=== PATIENT | male | born 1965 | race Caucasian/White ===

== ENCOUNTER 2020-12-22 13:59 | Outpatient (CLI) | payer OTHER ==
--- NOTE | 2020-12-22 15:54 | MRI Report ---
PROCEDURE: Cervical Spine W/O INDICATIONS: Cervical spondylosis. TECHNIQUE: Noncontrast sagittal T1 spin echo and T2 fast spin echo, sagittal STIR, foraminal oblique sagittal T2 fast spin echo, and axial gradient echo or T2 fast spin echo through the cervical spine. COMPARISON: None. FINDINGS: Image quality: Excellent. Alignment and Curvature: Normal cervical spine vertebral body height and alignment. Bone Marrow: No suspicious focal bone marrow signal abnormality or bone marrow edema. Mild degenerati ve endplate signal changes. Spinal Cord: Normal morphology and signal intensity of the cervical cord. There is no syrinx. Regional Soft Tissues: Prevertebral and paraspinous soft tissues are within normal limits. C2-C3: No spinal canal or neural foraminal stenosis. C3-C4: No spinal canal or neural foraminal stenosis. C4-C5: No spinal canal or neural foraminal stenosis. C5-C6: Facet and uncovertebral hypertrophy contribute to moderate right and mild left neural foramin al narrowing. No spinal canal stenosis. C6-C7: Facet hypertrophy to moderate-severe right and moderate left neural foraminal stenosis. Mild spinal canal narrowing. C7-T1: No spinal canal or neural foraminal stenosis IMPRESSION: Degenerative changes at C5-C6 and C6-C7 as detailed above. Correlate for any corresponding radicular symptoms. Reviewed by: Stu Kaufman MD on 12/22/2020 3:53 PM PDT Approved by: Stu Kaufman MD on 12/22/2020 3:53 PM PDT Station ID: [id number]
== END 2020-12-22 14:00 | disposition home or self-care (01) ==
LOC: DI 13:59
PROVIDERS: ATTEND Physician Assistant
DX: M47.812 Spondylosis without myelopathy or radiculopathy, cervical region (principal); M48.02 Spinal stenosis, cervical region